=== PATIENT | female | born 1990 | race Caucasian/White ===

== ENCOUNTER 2017-12-04 10:01 | Emergency (ER) | payer MEDICAID ==
[2017-12-04 10:16] VITALS: BP 128/82; PULSE 71; RESP 18; TEMP 98.8; O2SAT 100
--- NOTE | 2017-12-04 10:30 | C.PDOC ---
History Of Present Illness WORSENING R UPPER TOOTH PAIN X 8 DAYS. WORSE AFTER BITING ON "SOMETHING HARD AND IT CRACKED THE TOOTH", NOW W INCR PAIN AND R FACIAL SWELLING. APPLYING TOPICAL RUBBING ALCOHOL TO TOOTH. NO OTHER ASSOC SX. +SMOKER EXAM MILD DIST NONTOXIC HEENT +POOR DENTITION. +CRACKED R UPPER 1 MOLAR W LOCAL TEND. MIN LOCAL GUM IRRITATION, NO ABSCESS. +R MILD LOWER FACIAL SWELL, NO ERYTHEMA REMAINDER NEG MDM ABX, PAIN RX, STOP SMOKING, DENTAL REFER Time Seen by Provider: 12/04/17 10:16 Chief Complaint (Nursing): Dental Pain History Per: Patient History/Exam Limitations: no limitations Onset/Duration Of Symptoms: Days Current Symptoms Are (Timing): Still Present Severity: Moderate Past Medical History Reviewed: Historical Data, Nursing Documentation, Vital Signs Vital Signs: Last Vital Signs Temp 98.8 F 12/04/17 10:14 Pulse 71 12/04/17 10:14 Resp 18 12/04/17 10:14 BP 128/82 12/04/17 10:14 Pulse Ox 100 12/04/17 10:14 - Medical History PMH: No Chronic Diseases Other Surgeries: Hx of surgeries Family History: States: No Known Family Hx - Social History Hx Tobacco Use: No Hx Alcohol Use: No Hx Substance Use: No - Immunization History Hx Influenza Vaccination: No Hx Pneumococcal Vaccination: No Review Of Systems Except As Marked, All Systems Reviewed And Found Negative. ENT: Positive for: Mouth Pain (right upper tooth pain) Physical Exam - Physical Exam Appears: Non-toxic, Other (mild distress) Skin: Normal Color, Warm, Dry Head: Atraumatic, Normacephalic, Swelling (+right mild lower facial swelling, no erythema) Eye(s): bilateral: Normal Inspection Teeth: No Normal Dentition (poor dentition), Other (+ cracked right upper 1 molar with local tenderness, minimal local gum irritation, no abscess) Neurological/Psych: Oriented x3, Normal Speech Medical Decision Making Medical Decision Making: ABX, PAIN RX, STOP SMOKING, DENTAL REFER Disposition Counseled Patient/Family Regarding: Diagnosis, Need For Followup, Rx Given, Smoking Cessation - Disposition Referrals: DENTAL,CLINIC [Other] Disposition: HOME/ ROUTINE Disposition Time: 10:35 Condition: IMPROVED Additional Instructions: STOP SMOKING IMMEDIATELY. SEE DENTIST BHAVYA. COMPLETE ANTIBIOTICS PRESCRIBED. Prescriptions: Acetaminophen with Codeine [Tylenol with Codeine No. 3 300 mg-30 mg] 1 tab PO Q6 PRN #12 tab PRN Reason: Pain, Moderate (4-7) Amoxicillin [Amoxil 500 mg Cap] 500 mg PO BID #14 cap Ibuprofen [Motrin] 600 mg PO Q6 #30 tab Instructions: Dental Pain (DC) Forms: [facility] (Frisian) - Clinical Impression Clinical Impression: Tooth fracture, Dentalgia - Scribe Statement The provider has reviewed the documentation as recorded by the Tahira Delgado Provider Attestation: All medical record entries made by the Desmondibneva were at my direction and personally dictated by me. I have reviewed the chart and agree that the record accurately reflects my personal performance of the history, physical exam, medical decision making, and the department course for this patient. I have also personally directed, reviewed, and agree with the discharge instructions and disposition.
[2017-12-04] MEDS ORDERED: Acetaminophen-Codeine 300/30 mg Tab PO STA (10:38)
[2017-12-04] MEDS ORDERED: Acetaminophen-Codeine 300/30 mg Tab PO ONE (10:45)
== END 2017-12-04 10:48 | disposition home or self-care (01) ==
LOC: C.ER 10:01
DX: S02.5XXA Fracture of tooth (traumatic), initial encounter for closed fracture (principal); K08.89 Other specified disorders of teeth and supporting structures

== ENCOUNTER 2018-01-17 23:18 | Emergency (ER) | payer MEDICAID, OTHER ==
[2018-01-17 23:26] VITALS: BP 113/77; PULSE 88; RESP 20; TEMP 98.6; O2SAT 98
[2018-01-18] MEDS ORDERED: Tetanus/Diphtheria Toxoids 0.5 ml Syringe IM ONE ×2 (00:13→00:19)
[2018-01-18] MEDS ORDERED: Bacitracin Ointment 30 GM TUBE TOP STA (00:13)
[2018-01-18] MEDS ORDERED: Bacitracin 500 Units/gm Oint Foilpak UD ONE (00:19)
--- NOTE | 2018-01-18 01:04 | C.PDOC ---
History Of Present Illness 27 yo female come in for evaluation of Left dorsal wrist contusion developed early today around 4 PM while at work. Pt sts, " was struck by metal fork by accident". Noted some superficial linear laceration and mild swelling over left dorsal wrist. Otherwise, pt denies weakness, sensory or vascular deficits to Left arm/hand. Ambulate to ED for evaluation, not in any apparent distress. Time Seen by Provider: 01/17/18 23:28 Chief Complaint (Nursing): Abnormal Skin Integrity History Per: Patient Past Medical History Reviewed: Historical Data, Nursing Documentation, Vital Signs Vital Signs: Last Vital Signs Temp 98.6 F 01/17/18 23:21 Pulse 88 01/17/18 23:21 Resp 20 01/17/18 23:21 BP 113/77 01/17/18 23:21 Pulse Ox 98 01/17/18 23:21 - Medical History PMH: No Chronic Diseases Family History: States: No Known Family Hx - Social History Hx Tobacco Use: Yes Hx Alcohol Use: No Hx Substance Use: Yes - Immunization History Hx Tetanus Toxoid Vaccination: No Hx Influenza Vaccination: No Hx Pneumococcal Vaccination: No Review Of Systems Except As Marked, All Systems Reviewed And Found Negative. Constitutional: Negative for: Fever, Chills Musculoskeletal: Positive for: Arm Pain Skin: Positive for: Lesions Neurological: Negative for: Weakness, Numbness Physical Exam - Physical Exam Appears: Well, Non-toxic, No Acute Distress Skin: Normal Color, Warm, Other (superificial linear laceration 2cm length over dorsal aspect left distal forearm/wrist, mild edema. No erythema, no discharge, no proximal streaking.) Extremity: Normal ROM (LUE), Tenderness (dorsal aspect left distal forearm/wrist ), Capillary Refill (less than 2sec to Left hand), No Deformity, Swelling Pulses: Left Radial: Normal Neurological/Psych: Oriented x3, Normal Speech, Normal Motor, Normal Sensation, Normal Reflexes ED Course And Treatment O2 Sat by Pulse Oximetry: 98 Pulse Ox Interpretation: Normal - Other Rad Left wrist X-Ray: Interpreted by Me, Viewed By Me Interpretation: (-) acute fx or dislocation Progress Note: On re-eval, pt is afebrile, hemodynamicaly stable. Ambulatory in ED with stable gait. Left dorsal forear/wrist: mild tenderness, edema associated with superficial linear laceration over distal forearm. No erythema, no wound discharge, no palpable deformity. FAROM, no neurovascular deficits. Imaging review (-) acute findings. tetanusgivebn. Bacitracin topically applied. Chris wrap ap plied to Left wrist. Pt advised. ref. to F/U with PMD in 2-3 days for re-eval. return if any new chnages. Disposition Counseled Patient/Family Regarding: Studies Performed, Diagnosis, Need For Followup, Rx Given - Disposition Referrals: [facility] [Outside] Disposition: HOME/ ROUTINE Disposition Time: : Condition: STABLE Additional Instructions: Apply antibiotic cream daily Clean wound with Peroxide daily Follow up with PMD in 2 days for re-evaluation. return to ED if any worsening or new changes. Prescriptions: Bacitracin OINT 1 applic TP BID #1 tube traMADol [Ultram] 50 mg PO TID #7 tab Instructions: Wound Care (DC), Wrist Sprain (DC) Forms: [facility] (Gabonese), Work Excuse - Clinical Impression Clinical Impression: Wrist contusion, Laceration
--- NOTE | 2018-01-18 09:10 | RAD ---
Date of service: 01/18/2018 PROCEDURE: Left Wrist Radiographs. HISTORY: injury COMPARISON: None. FINDINGS: BONES: Bone alignment and mineralization are normal. There is no acute displaced fracture or bone destruction. JOINTS: Normal. No dislocation. SOFT TISSUES: Normal. OTHER FINDINGS: None. IMPRESSION: No acute fracture or dislocation.
== END 2018-01-18 01:17 | disposition home or self-care (01) ==
LOC: C.ER 23:18
DX: S60.212A Contusion of left wrist, initial encounter (principal); S61.512A Laceration without foreign body of left wrist, initial encounter; X58.XXXA Exposure to other specified factors, initial encounter; Y99.0 Civilian activity done for income or pay; Z23 Encounter for immunization

== ENCOUNTER 2018-04-22 17:45 | Observation (INO) | payer MEDICAID ==
[2018-04-22] MEDS ORDERED: Sodium Chloride 0.9% 1,000 ML IV ONE ×3 (18:11→21:24)
[2018-04-22 18:23] LABS: BASO # 0.1 K/uL (0.0-0.2); MONO # 0.6 K/uL (0.0-0.8)
[2018-04-22 18:30] LABS: BASO % 0.3 % (0.0-2.0); EOS # 0.1 K/uL (0.0-0.7); EOS % 0.4 % (0.0-4.0); HEMOGLOBIN 13.3 g/dL (11.0-16.0); LYMPH # 1.8 K/uL (1.0-4.3); LYMPH % 5.5 % (20.0-40.0); MEAN CORPUSCULAR HEMOGLOBIN 32.5 pg (27.0-31.0); MEAN CORPUSCULAR HGB CONC 33.2 g/dL (33.0-37.0); MEAN PLATELET VOLUME 7.8 fL (7.2-11.7); MONO % 1.9 % (0.0-10.0); NEUT # 29.6 K/uL (1.8-7.0); NEUT % 91.9 % (50.0-75.0); PLATELET COUNT 294 K/uL (130-400); RBC 4.09 Mil/uL (3.80-5.20); RED CELL DISTRIBUTION WIDTH 13.1 % (11.5-14.5)
[2018-04-22 18:33] LABS: WHITE BLOOD COUNT 32.3 K/uL (4.8-10.8)
[2018-04-22 18:42] LABS: ALB/GLOB RATIO 1.3 (1.0-2.1); ALBUMIN 4.4 g/dL (3.5-5.0); ALT/SGPT 31 U/L (9-52); AST/SGOT 63 U/L (14-36); BLOOD UREA NITROGEN 16 mg/dL (7-17); CALCIUM 8.4 mg/dl (8.6-10.4); GFR NON-AFRICAN AMERICAN > 60
[2018-04-22 18:56] LABS: ACETAMINOPHEN < 10.0 ug/mL (10.0-30.0); SALICYLATE < 1.0 mg/dL 1
[2018-04-22 19:04] LABS: SQUAMOUS EPITHIAL 4 /hpf (0-5); URINE BACTERIA OCC (<OCC); URINE BILIRUBIN NEGATIVE (NEGATIVE); URINE BLOOD 1+ (NEGATIVE); URINE CLARITY Hazy (Clear); URINE COLOR Yellow (YELLOW); URINE GLUCOSE (UA) 3+ mg/dL (Normal); URINE LEUKOCYTE ESTERASE 3+ Leu/uL (Negative); URINE PROTEIN NEGATIVE (NEGATIVE); URINE UROBILINOGEN NORMAL mg/dL (0.2-1.0)
[2018-04-22 19:05] LABS: HCG,QUALITATIVE URINE NEGATIVE (NEGATIVE)
[2018-04-22 19:09] LABS: BARBITURATES, UR NEGATIVE (NEGATIVE); BENZODIAZEPINES, UR NEGATIVE (NEGATIVE); OPIATES, UR NEGATIVE (NEGATIVE); PHENCYCLIDINE, UR NEGATIVE (NEGATIVE)
--- NOTE | 2018-04-22 19:14 | C.PDOC ---
History Of Present Illness 27 year old female is brought to the ED by ambulance for evaluation. As per female senior principal who is at bedside, patient was noted to be exhibiting abnormal behavior today. As per senior principal, patient worked an overnight shift and began exhibiting abnormal behavior, such as biting her lip, Tmh Teacher denies seizure activity. Upon further questioning, patient states that she bought marijuana from the [employer] and it may have been laced with something. Patient denies headache at this time. Time Seen by Provider: 04/22/18 18:03 Chief Complaint (Nursing): Seizure History Per: Patient, Other (female senior principal ) History/Exam Limitations: no limitations Recent Seizure Activity Began: Hours Ago: Additional History Per: Patient Past Medical History Reviewed: Historical Data, Nursing Documentation, Vital Signs Vital Signs: Last Vital Signs Temp 97.8 F 04/22/18 18:06 Pulse 100 H 04/22/18 18:06 Resp 16 04/22/18 18:06 BP 115/74 04/22/18 18:06 Pulse Ox 97 04/22/18 18:06 - Medical History PMH: No Chronic Diseases Surgical History: No Surg Hx Family History: States: Unknown Family Hx - Social History Hx Tobacco Use: Yes Hx Alcohol Use: No Hx Substance Use: Yes - Immunization History Hx Tetanus Toxoid Vaccination: No Hx Influenza Vaccination: No Hx Pneumococcal Vaccination: No Review Of Systems Review Of Systems: ROS cannot be obtained secondary to pt's inabilty to answer questions. Physical Exam - Physical Exam Appears: Non-toxic, No Acute Distress, Other (somnolent, difficult to redirect ) Skin: Normal Color, Warm, Dry Head: Atraumatic, Normacephalic Eye(s): bilateral: Other (pinpoint pupils. no photophobia ) Oral Mucosa: Moist Neck: Supple Chest: Symmetrical, No Deformity, No Tenderness Cardiovascular: Rhythm Regular, No Murmur Respiratory: Normal Breath Sounds, No Rales, No Rhonchi, No Wheezing Extremity: Normal ROM, Capillary Refill (less than 2 seconds ) Neurological/Psych: Other (unremarkable peripheral neurological exam ) ED Course And Treatment - Laboratory Results Result Diagrams: 04/22/18 20:48 04/22/18 21:28 Lab Interpretation: Abnormal (leukocytosis down from 32K to 24K, ? demargination from ? seizure vs cocaine abuse, UDS + cocaine/THC, UA neg.) Urine POC: Negative ECG: Interpreted By Me ECG Rhythm: Sinus Rhythm O2 Sat by Pulse Oximetry: 97 (on RA ) Pulse Ox Interpretation: Normal - Radiology CXR: Interpreted by Me CXR Interpretation: Yes: No Acute Disease - CT Scan/US head CT Other Rad Studies (CT/US): Interpreted By Me, Radiology Report Reviewed (neg) Progress Note: transient hypoglycemia glu 37-57 rechecked, pt A&Ox3, had received insulin 4 IV for glu 280. 2L NS luekocytosis improrved from 32K-->24K no infectuous source, prob demargination. lower susp of seizure provoked by cocaine as cpk low/norm Reevaluation Time: 22:26 Reassessment Condition: Improved (neurologically much improved,) - Physician Consult Information Outcome Of Conversation: 0000: d/w Dr. Jesus- Medicine Lift Supervisor- ok to admit Medical Decision Making Medical Decision Making: ? seizure activity leukocytosis trending down, no source cocaine/cannabis abuse ? new DM glu 280 transient HYPOglycemia in ED Disposition Doctor Will See Patient In The: Hospital Counseled Patient/Family Regarding: Studies Performed, Diagnosis - Disposition Disposition: HOSPITALIZED Disposition Time: 22:30 Condition: GOOD - Clinical Impression Clinical Impression: Mental status alteration, Cocaine abuse, Cannabis abuse, Hyperglycemia - Scribe Statement The provider has reviewed the documentation as recorded by the Scribe (Anastasia Ames) Provider Attestation: All medical record entries made by the Scribe were at my direction and personally dictated by me. I have reviewed the chart and agree that the record accurately reflects my personal performance of the history, physical exam, medical decision making, and the department course for this patient. I have also personally directed, reviewed, and agree with the discharge instructions and disposition.
--- NOTE | 2018-04-22 19:17 | C.PDOC ---
Time Seen by Provider: 04/22/18 18:03 Chief Complaint (Nursing): Seizure Past Medical History Vital Signs: Last Vital Signs Temp 97.8 F 04/22/18 18:06 Pulse 100 H 04/22/18 18:06 Resp 16 04/22/18 18:06 BP 115/74 04/22/18 18:06 Pulse Ox 97 04/22/18 18:06 - Social History Hx Tobacco Use: Yes Hx Alcohol Use: No Hx Substance Use: Yes - Immunization History Hx Tetanus Toxoid Vaccination: No Hx Influenza Vaccination: No Hx Pneumococcal Vaccination: No ED Course And Treatment - Laboratory Results Result Diagrams: 04/22/18 18:19 04/22/18 18:19 O2 Sat by Pulse Oximetry: 97 Disposition - Disposition
[2018-04-22 19:25] LABS: VENOUS BLOOD GAS BASE EXCESS -4.5 mmol/L (0.0-2.0); VENOUS BLOOD GAS PCO2 61 mmHg (40-60); VENOUS BLOOD GAS PO2 44 mm/Hg (30-55); VENOUS BLOOD PH 7.21 (7.32-7.43)
[2018-04-22 19:32] LABS: BANDS 11 % (0-2); LYMPHOCYTE 3 % (20-40); MYELOCYTE 1 % (0-0); NEUTROPHIL 85 % (50-75); PLATELET ESTIMATE NORMAL (NORMAL); TOTAL CELLS COUNTED 100
[2018-04-22] MEDS ORDERED: (Novolin R) Insulin Human Regular 100 units/ml vial IVP STA (19:32)
[2018-04-22] MEDS ORDERED: (Novolin R) Insulin Human Regular 100 units/ml vial ONE (19:44)
[2018-04-22 20:55] LABS: HEMOGLOBIN 11.7 g/dL (11.0-16.0); MEAN CELL VOLUME 97.4 fL (81.0-99.0); MEAN CORPUSCULAR HEMOGLOBIN 32.6 pg (27.0-31.0); MEAN CORPUSCULAR HGB CONC 33.5 g/dL (33.0-37.0); MEAN PLATELET VOLUME 7.4 fL (7.2-11.7); RBC 3.59 Mil/uL (3.80-5.20); RED CELL DISTRIBUTION WIDTH 12.9 % (11.5-14.5)
[2018-04-22 21:21] LABS: VENOUS BLOOD GAS BASE EXCESS -9.7 mmol/L (0.0-2.0); VENOUS BLOOD GAS PCO2 37 mmHg (40-60); VENOUS BLOOD GAS PO2 21 mm/Hg (30-55); VENOUS BLOOD PH 7.26 (7.32-7.43)
[2018-04-22 21:21] LABS: ALB/GLOB RATIO 1.3 (1.0-2.1); ALBUMIN 3.6 g/dL (3.5-5.0); ALT/SGPT 30 U/L (9-52); AST/SGOT 42 U/L (14-36); BLOOD UREA NITROGEN 14 mg/dL (7-17); CALCIUM 7.1 mg/dl (8.6-10.4); GFR NON-AFRICAN AMERICAN > 60
[2018-04-22] MEDS ORDERED: Dextrose 50% SYRINGE Inj (50 ml) ONE (21:25)
[2018-04-22] MEDS ORDERED: Sodium Chloride 0.9% 1,000 ML ONE (21:32)
[2018-04-23] MEDS ORDERED: Dextrose 5%/0.9% NS 1,000 ML IV SCH (08:00)
--- NOTE | 2018-04-23 08:23 | CT ---
Date of service: 04/22/2018 PROCEDURE: CT HEAD WITHOUT CONTRAST. HISTORY: Headache. Change in mental status. Leukocytosis. COMPARISON: None available. TECHNIQUE: Axial computed tomography images were obtained through the head/brain without intravenous contrast. Radiation dose: Total exam DLP = 1036.44 mGy-cm. This CT exam was performed using one or more of the following dose reduction techniques: Automated exposure control, adjustment of the mA and/or kV according to patient size, and/or use of iterative reconstruction technique. FINDINGS: HEMORRHAGE: No intracranial hemorrhage. BRAIN: No mass effect or edema. No atrophy or chronic microvascular ischemic changes. VENTRICLES: Unremarkable. No hydrocephalus. CALVARIUM: Unremarkable. PARANASAL SINUSES: Mucosal thickening the ethmoid air cells. MASTOID AIR CELLS: Unremarkable as visualized. No inflammatory changes. OTHER FINDINGS: None. IMPRESSION: No acute intracranial abnormality. Sinus mucosal disease. If symptoms persists, consider correlation with MRI. A preliminary report was generated at 8:33 p.m. on 04/22/[address] Vasu Maciel from [facility].
--- NOTE | 2018-04-23 08:35 | RAD ---
Date of service: 04/22/2018 HISTORY: leukocytosis COMPARISON: No prior. FINDINGS: LUNGS: Low-density vague asymmetrical mild increased density projects over the left inferior hemithorax near costophrenic angle. A developing infiltrate and/or other pleural parenchymal pathology including small left pleural effusion are considerations. No dense air bronchograms noted. PLEURA: Possible small left pleural effusion present., no pneumothorax apparent. CARDIOVASCULAR: No aortic atherosclerotic calcification present. Normal cardiac size. No pulmonary vascular congestion. OSSEOUS STRUCTURES: No significant abnormalities. VISUALIZED UPPER ABDOMEN: Normal. OTHER FINDINGS: None. IMPRESSION: Low-density vague asymmetrical mild increased density projects over the left inferior hemithorax near costophrenic angle. A developing infiltrate and/or other pleural parenchymal pathology including small left pleural effusion are considerations. No dense air bronchograms noted. Comments: Study marked for PA review .
--- NOTE | 2018-04-23 09:26 | PCM.PSYCH ---
Initial Psychiatric Evaluation - Initial Psychiatric Evaluation Type of Admission: Voluntary Legal Status: Capacity Current Medications: Active Medications Generic Name Dose Route Start Last Admin Trade Name Freq PRN Reason Stop Dose Admin Dextrose/Sodium Chloride 1,000 mls @ 100 mls/hr 04/23/18 08:00 Dextrose 5%/0.9% Ns 1000 Ml IV .Q10H REILLY Ondansetron HCl 4 mg 04/23/18 07:52 Zofran Inj IVP Q6 PRN N/V Past Psychiatric History - Past Psychiatric History Pertinent Medical Hx (Current Medical&Sleep Prob, Allergies): Allergies Allergy/AdvReac Type Severity Reaction Status Date / Time feathers Allergy RASH Uncoded 01/17/18 23:26 Bacitracin OINT 1 applic TP BID #1 tube 01/18/18 traMADol [Ultram] 50 mg PO TID #7 tab 01/18/18
[2018-04-23 11:14] LABS: HEMOGLOBIN 11.6 g/dL (11.0-16.0); MEAN CELL VOLUME 97.5 fL (81.0-99.0); MEAN CORPUSCULAR HEMOGLOBIN 32.8 pg (27.0-31.0); MEAN CORPUSCULAR HGB CONC 33.7 g/dL (33.0-37.0); MEAN PLATELET VOLUME 7.9 fL (7.2-11.7); RBC 3.53 Mil/uL (3.80-5.20)
[2018-04-23 11:39] LABS: BLOOD UREA NITROGEN 8 mg/dL (7-17)
[2018-04-23 11:48] LABS: CALCIUM 7.4 mg/dl (8.6-10.4); CK-MB 5.77 ng/mL (0.0-3.38); GFR NON-AFRICAN AMERICAN > 60
[2018-04-23] MEDS: Azithromycin 500 MG in Sodium Chloride 0.9% 250 ML IVPB SCH (14:00)
--- NOTE | 2018-04-23 14:01 | CP.PCM.PN ---
Subjective - Date & Time of Evaluation Date of Evaluation: 04/23/18 Time of Evaluation: 09:30 - Subjective Subjective: Medicine progress note (Dr. Silva's service) Patient was seen and examined at bedside. Patient complains of nausea and "not feeling well'. Upon questioning, patient states that she does not recall what happened to her. Currently, patient admits to mild chest discomfort, nausea and vomiting but denies shortness of breath, palpitations, dizziness,diaphoresis, diarrhea or abdominal pain. HPI: Patient is a 27 year old with unknown of past medical history, who presents to the ED via ambulance due to abnormal behaviors witnessed by her partner. As per patient she does not recall the incident and the only she can recall is the arrival of EMS to her home. As per patient, she went out for drinks after work and does not recall what happened when got home. As per ED documentation and partner, patient was noted to have some erratic/abnormal behavior at home that was very concerning, there patient's partner called the EMS. Upon further questioning, patient believes her drinks was laced and patient denies any current use of cocaine or heroine or any other illicit drugs. Patient states that she had used other illicit drugs in the past but not for years. PMD: None PMHx: Denies PSHx: Denies Medications: Denies FHx: Unknown Allergies: Feathers Social Hx: Lives with partner. Work an overnight shift job. Admits to frequent use of marijuana and 3 cigarettes but denies current illicit drug use Objective - Vital Signs/Intake and Output Vital Signs (last 24 hours): Temp Pulse Resp BP Pulse Ox 98.8 F 90 20 97/56 L 98 04/23/18 08:33 04/23/18 08:33 04/23/18 08:33 04/23/18 08:33 04/23/18 12:51 - Medications Medications: Current Medications Dextrose/Sodium Chloride (Dextrose 5%/0.9% Ns 1000 Ml) 1,000 mls @ 100 mls/hr IV .Q10H REILLY Last Admin: 04/23/18 08:30 Dose: 100 mls/hr Azithromycin 500 mg/ Sodium (Chloride) 250 mls @ 250 mls/hr IVPB DAILY@1200 REILLY; Protocol Ceftriaxone Sodium 1 gm/ (Sodium Chloride) 100 mls @ 100 mls/hr IVPB Q12H REILLY; Protocol Ondansetron HCl (Zofran Inj) 4 mg IVP Q6 PRN PRN Reason: N/V - Labs Labs: 04/23/18 11:05 04/23/18 11:05 - Constitutional Appears: No Acute Distress - Head Exam Head Exam: ATRAUMATIC - Eye Exam Eye Exam: EOMI - ENT Exam ENT Exam: Mucous Membranes Dry - Respiratory Exam Respiratory Exam: Clear to Ausculation Bilateral, NORMAL BREATHING PATTERN. absent: Decreased Breath Sounds, Prolonged Expiratory Phase, Rhonchi, Wheezes, Respiratory Distress - Cardiovascular Exam Cardiovascular Exam: Tachycardia, REGULAR RHYTHM, +S1, +S2 - GI/Abdominal Exam GI & Abdominal Exam: Soft, Normal Bowel Sounds. absent: Distended, Firm, Guarding, Rigid, Tenderness - Extremities Exam Extremities Exam: Normal Inspection. absent: Calf Tenderness - Back Exam Back Exam: absent: CVA tenderness (L), CVA tenderness (R) - Neurological Exam Neurological Exam: Alert, Awake, Oriented x3 - Psychiatric Exam Psychiatric exam: Normal Affect - Skin Skin Exam: Normal Color Assessment and Plan (1) Mental status alteration Assessment & Plan: Possible witnessed seizure episode secondary to substance abuse Consultation: Neurology, Dr. Walls--->Help appreciated * Recommendation as per recommendation Imaging: Head CT: No acute intracranial abnormality. Sinus mucosal disease. F/U Brain MRI Management: Seizure precautions Status: Acute (2) Nausea Assessment & Plan: Zofran 4mg IV Q6H PRN Status: Acute (3) Sepsis Assessment & Plan: On admission: - WBC: 32.4, HR:100, Bands 11 Chest X-ray: Low-density vague asymmetrical mild increased density projects over the left inferior hemithorax near costophrenic angle. A developing infiltrate and/or other pleural parenchymal pathology including small left pleural effusion are considerations. No dense air bronchograms noted. UA: LE (3+), WBC (29); F/u UC and BC F/u procalcitonin WBC down trending Empiric Abx: - Rocephin 1gm daily - Azithromycin 500mg IV daily -Florastor 250mg PO BID - D5WNS @100cc/hr due to hypoglycemia Status: Acute (4) Substance abuse Assessment & Plan: UDS: +Cocaine Consultation: - Psychiatry, Dr. Paige---> Help appreciated * Management as per recommendation Status: Acute (5) Chest discomfort Assessment & Plan: Possibly secondary to cocaine use MARILEE: Negative F/u EKG Status: Acute (6) Hypokalemia Assessment & Plan: Secondary to vomiting KCL soln PO once Monitor with am cmp Status: Acute (7) Hypoglycemia Assessment & Plan: Finger stick blood glucose ACBD Currently on D5WNS@100cc/hr Status: Acute (8) Prophylactic measure Assessment & Plan: GI: Not indicated DVT: SCDs All plans and management discussed with Dr. Silva Status: Acute
[2018-04-23] MEDS ORDERED: Potassium Chloride 20 mEq/15 ml LIQ UD PO ONE (14:20)
--- NOTE | 2018-04-23 15:42 | MRI ---
Date of service: 04/23/2018 PROCEDURE: MRI BRAIN WITHOUT CONTRAST HISTORY: Altered Mental Status COMPARISON: None available. TECHNIQUE: Multiplanar, multisequence MR images of the brain were obtained without intravenous contrast enhancement. FINDINGS: HEMORRHAGE: None DWI: No evidence of an acute or early subacute infarction. BRAIN PARENCHYMA: No mass effect or edema. No atrophy or chronic microvascular ischemic changes. VENTRICLES: Unremarkable. No hydrocephalus. CRANIUM: Unremarkable. ORBITS: Grossly unremarkable. PARANASAL SINUSES/MASTOIDS: Bilateral maxillary sinus retention cyst/polyps as well as mild left mastoid air cell opacification. VASCULAR SYSTEM: Skull base flow voids intact. OTHER FINDINGS: None. IMPRESSION: Unremarkable non contrast enhanced MRI of the brain.Bilateral maxillary sinus retention cyst/polyps as well as mild left mastoid air cell opacification.
--- NOTE | 2018-04-23 17:34 | CP.PCM.CON ---
History of Present Illness - History of Present Illness History of Present Illness: Neurology Consultation Note: Ms. Mejia is a 27-year-old woman, referred to me by Dr. Silva, with a history of multi-substance abuse, who presented to the ED after her friend found her having difficulty with respirations and lips were blue, she was biting her lips and was not responsive. EMS was called and noted the patient to be unresponsive and in respiratory distress. Later, when the patient was awake, alert, oriented and conversant, she stated that she had obtained some marijuana from an unknown source and she believes it was "laced". Urine toxicology was positive for cocaine and THC. She had an elevated WBC, but was afebrile. CT scan of the head was normal. MRI of the brain was normal. The patient continues to have nausea/vomiting and some trouble with respirations, but no headache and no focal neurological deficits are noted. Review of Systems - Constitutional Constitutional: As Per HPI - EENT Eyes: absent: As Per HPI, Blind Spots, Blurred Vision, Change in Vision, Decreased Night Vision, Diplopia, Discharge, Dry Eye, Exophthalmos, Floaters, Irritation, Itchy Eyes, Loss of Peripheral Vision, Pain, Photophobia, Requires Corrective Lenses, Sees Flashes, Spots in Vision, Tunnel Vision, Other Visual Disturbances, Loss of Vision, Other Ears: absent: As Per HPI, Decreased Hearing, Ear Discharge, Ear Pain, Tinnitus, Abnormal Hearing, Disequilibrium, Dizziness, Other Nose/Mouth/Throat: absent: As Per HPI, Epistaxis, Nasal Congestion, Nasal Disc harge, Nasal Obstruction, Nasal Trauma, Nose Pain, Post Nasal Drip, Sinus Pain, Sinus Pressure, Bleeding Gums, Change in Voice, Dental Pain, Dry Mouth, Dysphagia, Halitosis, Hoarsness, Lip Swelling, Mouth Lesions, Mouth Pain, Odynophagia, Sore Throat, Throat Swelling, Tongue Swelling, Facial Pain, Neck Pain, Neck Mass, Other - Breasts Breasts: absent: As Per HPI, Change in Shape, Mass, Pain, Nipple Discharge, Nipple Inversion, Skin Changes, Swelling, Other - Cardiovascular Cardiovascular: absent: As Per HPI, Acrocyanosis, Chest Pain, Chest Pain at Rest, Chest Pain with Activity, Claudication, Diaphoresis, Dyspnea, Dyspnea on Exertion, Edema, Irregular Heart Rhythm, Pain Radiating to Arm/Neck/Jaw, Leg Edema, Leg Ulcers, Lightheadedness, Orthopnea, Palpitations, Paroxysmal Nocturnal Dyspnea, Pedal Edema, Radiating Pain, Rapid Heart Rate, Slow Heart Rate, Syncope, Other - Respiratory Respiratory: As Per HPI - Gastrointestinal Gastrointestinal: absent: As Per HPI, Abdominal Pain, Belching, Bloating, Change in Bowel Habits, Change in Stool Character, Coffee Ground Emesis, Constipation, Cramping, Diarrhea, Dyspepsia, Dysphagia, Early Satiety, Excessive Flatus, Fecal Incontinence, Heartburn, Hematemesis, Hematochezia, Loose Stools, Melena, Nausea, Odynophagia, Temesmus, Vomiting, Other - Genitourinary Genitourinary: Difficulty Urinating, Dysuria, Urinary Frequency - Musculoskeletal Musculoskeletal: absent: As Per HPI, Abnormal Gait, Arthralgias, Atrophy, Back Pain, Deformity, Joint Swelling, Limited Range of Motion, Loss of Height, Muscle Cramps, Muscle Weakness, Myalgias, Neck Pain, Numbness, Radiating Pain into Limb, Stiffness, Tingling, Other - Integumentary Integumentary: absent: As Per HPI, Acne, Alopecia, Bleeding Lesions, Change in Hair, Change in Nails, Change in Pigmentation, Changing Lesions, Dry Skin, Erythema, Furuncle, Hirsutism, Lesions, New Lesions, Non-Healing Lesions, Photosensitivity, Pruritus, Rash, Skin Pain, Skin Ulcer, Sores, Striae, Swelling, Unusual Bruising, Wounds, Jaundice, Other - Neurological Neurological: As Per HPI - Psychiatric Psychiatric: As Per HPI - Endocrine Endocrine: absent: As Per HPI, Change in Body Appearance, Change in Libido, Cold Intolorance, Deepening of Voice, Excessive Sweating, Fatigue, Flushing, Heat Intolorance, Increase in Ring/Shoe/Hat Size, Palpitations, Polydipsia, Polyphagia, Polyuria, Other - Hematologic/Lymphatic Hematologic: As Per HPI Past Patient History - Infectious Disease Hx of Infectious Diseases: None - Past Social History Smoking Status: Light Smoker < 10 Cigarettes Daily - PSYCHIATRIC Hx Substance Use: Yes - SURGICAL HISTORY Hx Surgeries: Yes Other/Comment: CYST REMOVED / TAILBONE - ANESTHESIA Hx Anesthesia: Yes Hx Anesthesia Reactions: No Hx Malignant Hyperthermia: No Meds Allergies/Adverse Reactions: Allergies Allergy/AdvReac Type Severity Reaction Status Date / Time feathers Allergy RASH Uncoded 01/17/18 23:26 - Medications Medications: Current Medications Dextrose/Sodium Chloride (Dextrose 5%/0.9% Ns 1000 Ml) 1,000 mls @ 100 mls/hr IV .Q10H [facility] Last Admin: 04/23/18 08:30 Dose: 100 mls/hr Azithromycin 500 mg/ Sodium (Chloride) 250 mls @ 250 mls/hr IVPB DAILY@1200 [facility]; Protocol Last Admin: 04/23/18 14:00 Dose: 250 mls/hr Ceftriaxone Sodium 1 gm/ (Sodium Chloride) 100 mls @ 100 mls/hr IVPB Q12H [facility]; Protocol Last Admin: 04/23/18 13:00 Dose: 100 mls/hr Ondansetron HCl (Zofran Inj) 4 mg IVP Q6 PRN PRN Reason: N/V Last Admin: 04/23/18 14:36 Dose: 4 mg Saccharomyces Boulardii (Florastor) 250 mg PO BID [facility] Physical Exam - Constitutional Appears: Toxic - Head Exam Head Exam: ATRAUMATIC, NORMAL INSPECTION, NORMOCEPHALIC - Eye Exam Eye Exam: EOMI, Normal appearance, PERRL - ENT Exam ENT Exam: Mucous Membranes Moist, Normal Exam - Neck Exam Neck exam: Positive for: Normal Inspection - Respiratory Exam Respiratory Exam: Prolonged Expiratory Phase, Wheezes, Stridor - Cardiovascular Exam Cardiovascular Exam: REGULAR RHYTHM, +S1, +S2 - GI/Abdominal Exam GI & Abdominal Exam: Hyperactive Bowel Sounds, Soft, Tenderness - Rectal Exam Rectal Exam: Deferred - Extremities Exam Extremities exam: Positive for: normal inspection - Back Exam Back exam: NORMAL INSPECTION - Neurological Exam Neurological exam: Alert, CN II-XII Intact, Normal Gait, Oriented x3, Reflexes Normal - Psychiatric Exam Psychiatric exam: Normal Affect, Normal Mood - Skin Skin Exam: Dry, Intact, Normal Color, Warm Results - Vital Signs Recent Vital Signs: Last Vital Signs Temp 98.2 F 04/23/18 15:21 Pulse 80 04/23/18 15:21 Resp 18 04/23/18 15:21 BP 104/70 04/23/18 15:21 Pulse Ox 95 04/23/18 15:21 - Labs Result Diagrams: 04/23/18 11:05 04/23/18 11:05 Labs: Laboratory Results - last 24 hr 04/22/18 04/22/18 04/22/18 18:19 18:19 18:29 WBC 32.3 H RBC 4.09 Hgb 13.3 Hct 40.1 MCV 98.0 MCH 32.5 H MCHC 33.2 RDW 13.1 Plt Count 294 MPV 7.8 Neut % (Auto) 91.9 H Lymph % (Auto) 5.5 L [place] % (Auto) 1.9 Eos % (Auto) 0.4 Baso % (Auto) 0.3 Neut # (Auto) 29.6 H Lymph # (Auto) 1.8 [place] # (Auto) 0.6 Eos # (Auto) 0.1 Baso # (Auto) 0.1 Neutrophils % (Manual) 85 H Band Neutrophils % 11 H* Lymphocytes % (Manual) 3 L Monocytes % (Manual) TEST NOT PERFORMED Myelocytes % 1 H Platelet Estimate Normal pO2 VBG pH VBG pCO2 VBG HCO3 VBG Total CO2 VBG O2 Sat (Calc) VBG Base Excess VBG Potassium Glucose Lactate Crit Value Called To Crit Value Called By Crit Value Read Back Blood Gas Notified Time Sodium 137 Potassium 4.5 Chloride 100 Carbon Dioxide 20 L Anion Gap 22 H BUN 16 Creatinine 1.0 Est GFR ( Amer) > 60 Est GFR (Non-Af Amer) > 60 POC Glucose (mg/dL) Random Glucose 280 H Hemoglobin A1c Calcium 8.4 L Phosphorus 6.3 H Magnesium 2.2 Total Bilirubin 0.3 AST 63 H ALT 31 Alkaline Phosphatase 76 Total Creatine Kinase CK-MB (Mass) Troponin I Total Protein 7.8 Albumin 4.4 Globulin 3.3 Albumin/Globulin Ratio 1.3 Venous Blood Potassium Urine Color Urine Clarity Urine pH Ur Specific [place] Urine Protein Urine Glucose (UA) Urine Ketones Urine Blood Urine Nitrate Urine Bilirubin Urine Urobilinogen Ur Leukocyte Esterase Urine WBC (Auto) Urine RBC (Auto) Ur Squamous Epith Cells Urine Bacteria Urine HCG, Qual Salicylates < 1.0 Urine Opiates Screen Urine Methadone Screen Acetaminophen < 10.0 L Ur Barbiturates Screen Ur Phencyclidine Scrn Ur Amphetamines Screen U Benzodiazepines Scrn U Oth Cocaine Metabols U Cannabinoids Screen Alcohol, Quantitative < 10 04/22/18 04/22/18 04/22/18 18:47 18:47 19:10 WBC RBC Hgb Hct MCV MCH MCHC RDW Plt Count MPV Neut % (Auto) Lymph % (Auto) [place] % (Auto) Eos % (Auto) Baso % (Auto) Neut # (Auto) Lymph # (Auto) [place] # (Auto) Eos # (Auto) Baso # (Auto) Neutrophils % (Manual) Band Neutrophils % Lymphocytes % (Manual) Monocytes % (Manual) Myelocytes % Platelet Estimate pO2 44 VBG pH 7.21 L VBG pCO2 61 H VBG HCO3 20.6 VBG Total CO2 26.3 VBG O2 Sat (Calc) 77.6 H VBG Base Excess -4.5 L VBG Potassium 3.9 Glucose 101 Lactate 2.7 H Crit Value Called To Crit Value Called By Crit Value Read Back Blood Gas Notified Time Sodium 142.0 Potassium Chloride 107.0 Carbon Dioxide Anion Gap BUN Creatinine Est GFR ( Amer) Est GFR (Non-Af Amer) POC Glucose (mg/dL) Random Glucose Hemoglobin A1c Calcium Phosphorus Magnesium Total Bilirubin AST ALT Alkaline Phosphatase Total Creatine Kinase CK-MB (Mass) Troponin I Total Protein Albumin Globulin Albumin/Globulin Ratio Venous Blood Potassium 3.9 Urine Color Yellow Urine Clarity Hazy Urine pH 5.0 Ur Specific [place] 1.013 Urine Protein Negative Urine Glucose (UA) 3+ H Urine Ketones Negative Urine Blood 1+ H Urine Nitrate Negative Urine Bilirubin Negative Urine Urobilinogen Normal Ur Leukocyte Esterase 3+ H Urine WBC (Auto) 29 H Urine RBC (Auto) 25 H Ur Squamous Epith Cells 4 Urine Bacteria Occ H Urine HCG, Qual Negative Salicylates Urine Opiates Screen Negative Urine Methadone Screen Negative Acetaminophen Ur Barbiturates Screen Negative Ur Phencyclidine Scrn Negative Ur Amphetamines Screen Negative U Benzodiazepines Scrn Negative U Oth Cocaine Metabols Positive H U Cannabinoids Screen Positive H Alcohol, Quantitative 04/22/18 04/22/18 04/22/18 19:46 20:11 20:48 WBC 24.0 H RBC 3.59 L Hgb 11.7 Hct 35.0 MCV 97.4 MCH 32.6 H MCHC 33.5 RDW 12.9 Plt Count 258 MPV 7.4 Neut % (Auto) Lymph % (Auto) [place] % (Auto) Eos % (Auto) Baso % (Auto) Neut # (Auto) Lymph # (Auto) [place] # (Auto) Eos # (Auto) Baso # (Auto) Neutrophils % (Manual) Band Neutrophils % Lymphocytes % (Manual) Monocytes % (Manual) Myelocytes % Platelet Estimate pO2 21 L VBG pH 7.26 L VBG pCO2 37 L VBG HCO3 15.4 VBG Total CO2 17.7 L VBG O2 Sat (Calc) 32.3 L VBG Base Excess -9.7 L VBG Potassium 4.9 Glucose Lactate 1.5 Crit Value Called To Er nurse Crit Value Called By Stephanie rt Crit Value Read Back Y Blood Gas Notified Time 2116 Sodium 132.0 Potassium Chloride 95.0 L Carbon Dioxide Anion Gap BUN Creatinine Est GFR ( Amer) Est GFR (Non-Af Amer) POC Glucose (mg/dL) Random Glucose Hemoglobin A1c Calcium Phosphorus Magnesium Total Bilirubin AST ALT Alkaline Phosphatase Total Creatine Kinase 81 CK-MB (Mass) Troponin I Total Protein Albumin Globulin Albumin/Globulin Ratio Venous Blood Potassium 4.9 Urine Color Urine Clarity Urine pH Ur Specific [place] Urine Protein Urine Glucose (UA) Urine Ketones Urine Blood Urine Nitrate Urine Bilirubin Urine Urobilinogen Ur Leukocyte Esterase Urine WBC (Auto) Urine RBC (Auto) Ur Squamous Epith Cells Urine Bacteria Urine HCG, Qual Salicylates Urine Opiates Screen Urine Methadone Screen Acetaminophen Ur Barbiturates Screen Ur Phencyclidine Scrn Ur Amphetamines Screen U Benzodiazepines Scrn U Oth Cocaine Metabols U Cannabinoids Screen Alcohol, Quantitative 04/22/18 04/22/18 04/22/18 20:48 21:24 21:28 WBC RBC Hgb Hct MCV MCH MCHC RDW Plt Count MPV Neut % (Auto) Lymph % (Auto) [place] % (Auto) Eos % (Auto) Baso % (Auto) Neut # (Auto) Lymph # (Auto) [place] # (Auto) Eos # (Auto) Baso # (Auto) Neutrophils % (Manual) Band Neutrophils % Lymphocytes % (Manual) Monocytes % (Manual) Myelocytes % Platelet Estimate pO2 VBG pH VBG pCO2 VBG HCO3 VBG Total CO2 VBG O2 Sat (Calc) VBG Base Excess VBG Potassium Glucose Lactate Crit Value Called To Crit Value Called By Crit Value Read Back Blood Gas Notified Time Sodium 140 Potassium 3.3 L Chloride 108 H Carbon Dioxide 23 Anion Gap 12 BUN 14 Creatinine 0.8 Est GFR ( Amer) > 60 Est GFR (Non-Af Amer) > 60 POC Glucose (mg/dL) 53 L Random Glucose 37 L* D 57 L Hemoglobin A1c Calcium 7.1 L Phosphorus Magnesium Total Bilirubin 0.1 L AST 42 H D ALT 30 Alkaline Phosphatase 55 Total Creatine Kinase CK-MB (Mass) Troponin I Total Protein 6.4 Albumin 3.6 Globulin 2.8 Albumin/Globulin Ratio 1.3 Venous Blood Potassium Urine Color Urine Clarity Urine pH Ur Specific [place] Urine Protein Urine Glucose (UA) Urine Ketones Urine Blood Urine Nitrate Urine Bilirubin Urine Urobilinogen Ur Leukocyte Esterase Urine WBC (Auto) Urine RBC (Auto) Ur Squamous Epith Cells Urine Bacteria Urine HCG, Qual Salicylates Urine Opiates Screen Urine Methadone Screen Acetaminophen Ur Barbiturates Screen Ur Phencyclidine Scrn Ur Amphetamines Screen U Benzodiazepines Scrn U Oth Cocaine Metabols U Cannabinoids Screen Alcohol, Quantitative 04/23/18 04/23/18 04/23/18 00:11 03:10 11:05 WBC 18.0 H RBC 3.53 L Hgb 11.6 Hct 34.4 MCV 97.5 MCH 32.8 H MCHC 33.7 RDW 13.0 Plt Count 207 MPV 7.9 Neut % (Auto) Lymph % (Auto) [place] % (Auto) Eos % (Auto) Baso % (Auto) Neut # (Auto) Lymph # (Auto) [place] # (Auto) Eos # (Auto) Baso # (Auto) Neutrophils % (Manual) Band Neutrophils % Lymphocytes % (Manual) Monocytes % (Manual) Myelocytes % Platelet Estimate pO2 VBG pH VBG pCO2 VBG HCO3 VBG Total CO2 VBG O2 Sat (Calc) VBG Base Excess VBG Potassium Glucose Lactate Crit Value Called To Crit Value Called By Crit Value Read Back Blood Gas Notified Time Sodium Potassium Chloride Carbon Dioxide Anion Gap BUN Creatinine Est GFR ( Amer) Est GFR (Non-Af Amer) POC Glucose (mg/dL) 83 115 H Random Glucose Hemoglobin A1c Calcium Phosphorus Magnesium Total Bilirubin AST ALT Alkaline Phosphatase Total Creatine Kinase CK-MB (Mass) Troponin I Total Protein Albumin Globulin Albumin/Globulin Ratio Venous Blood Potassium Urine Color Urine Clarity Urine pH Ur Specific [place] Urine Protein Urine Glucose (UA) Urine Ketones Urine Blood Urine Nitrate Urine Bilirubin Urine Urobilinogen Ur Leukocyte Esterase Urine WBC (Auto) Urine RBC (Auto) Ur Squamous Epith Cells Urine Bacteria Urine HCG, Qual Salicylates Urine Opiates Screen Urine Methadone Screen Acetaminophen Ur Barbiturates Screen Ur Phencyclidine Scrn Ur Amphetamines Screen U Benzodiazepines Scrn U Oth Cocaine Metabols U Cannabinoids Screen Alcohol, Quantitative 04/23/18 04/23/18 04/23/18 11:05 11:52 14:16 WBC RBC Hgb Hct MCV MCH MCHC RDW Plt Count MPV Neut % (Auto) Lymph % (Auto) [place] % (Auto) Eos % (Auto) Baso % (Auto) Neut # (Auto) Lymph # (Auto) [place] # (Auto) Eos # (Auto) Baso # (Auto) Neutrophils % (Manual) Band Neutrophils % Lymphocytes % (Manual) Monocytes % (Manual) Myelocytes % Platelet Estimate pO2 VBG pH VBG pCO2 VBG HCO3 VBG Total CO2 VBG O2 Sat (Calc) VBG Base Excess VBG Potassium Glucose Lactate Crit Value Called To Crit Value Called By Crit Value Read Back Blood Gas Notified Time Sodium 135 Potassium 3.5 L Chloride 103 Carbon Dioxide 25 Anion Gap 11 BUN 8 Creatinine 0.6 L Est GFR ( Amer) > 60 Est GFR (Non-Af Amer) > 60 POC Glucose (mg/dL) 85 Random Glucose 77 Hemoglobin A1c 5.5 Calcium 7.4 L Phosphorus Magnesium Total Bilirubin AST ALT Alkaline Phosphatase Total Creatine Kinase 138 H CK-MB (Mass) 5.77 H Troponin I 0.0870 Total Protein Albumin Globulin Albumin/Globulin Ratio Venous Blood Potassium Urine Color Urine Clarity Urine pH Ur Specific [place] Urine Protein Urine Glucose (UA) Urine Ketones Urine Blood Urine Nitrate Urine Bilirubin Urine Urobilinogen Ur Leukocyte Esterase Urine WBC (Auto) Urine RBC (Auto) Ur Squamous Epith Cells Urine Bacteria Urine HCG, Qual Salicylates Urine Opiates Screen Urine Methadone Screen Acetaminophen Ur Barbiturates Screen Ur Phencyclidine Scrn Ur Amphetamines Screen U Benzodiazepines Scrn U Oth Cocaine Metabols U Cannabinoids Screen Alcohol, Quantitative Assessment & Plan (1) Mental status alteration Assessment and Plan: Currently she is back to baseline. She likely abused cocaine and cannabis to result in altered mental status. She may have also had an infection. She is afebrile and does not have any neurological deficits and no headache. Unlikely meningitis or encephalitis. MRI is normal. No further recommendations from a neurological perspective. Thank you for this consultation. Status: Acute
[2018-04-23] MEDS: Saccharomyces Boulardi 250 mg Cap PO SCH (18:03)
[2018-04-24 08:08] LABS: BASO % 0.2 % (0.0-2.0); EOS # 0.2 K/uL (0.0-0.7); EOS % 1.6 % (0.0-4.0); HEMOGLOBIN 12.1 g/dL (11.0-16.0); LYMPH # 1.8 K/uL (1.0-4.3); LYMPH % 14.2 % (20.0-40.0); MEAN CORPUSCULAR HEMOGLOBIN 32.9 pg (27.0-31.0); MEAN PLATELET VOLUME 8.5 fL (7.2-11.7); MONO % 7.8 % (0.0-10.0); NEUT # 9.9 K/uL (1.8-7.0); NEUT % 76.2 % (50.0-75.0); NRBC % 0.1 % (0.0-2.0); RBC 3.66 Mil/uL (3.80-5.20); RED CELL DISTRIBUTION WIDTH 13.1 % (11.5-14.5)
[2018-04-24 08:40] LABS: ALB/GLOB RATIO 1.2 (1.0-2.1); ALBUMIN 3.6 g/dL (3.5-5.0); ALT/SGPT 29 U/L (9-52); AST/SGOT 34 U/L (14-36); BLOOD UREA NITROGEN 4 mg/dL (7-17); CALCIUM 8.1 mg/dl (8.6-10.4); GFR NON-AFRICAN AMERICAN > 60
[2018-04-24] MEDS ORDERED: Potassium & Sodium Phosphate PO ONE (10:30)
[2018-04-24] MEDS: Saccharomyces Boulardi 250 mg Cap PO SCH ×2 (10:30→18:38)
--- NOTE | 2018-04-24 10:42 | CP.PCM.PN ---
<Maritza Rodas RamónRolo - Last Filed: 04/24/18 16:55> Subjective - Date & Time of Evaluation Date of Evaluation: 04/24/18 Time of Evaluation: 10:41 - Subjective Subjective: Progress note for Dr. Walls Patient was seen and examined at bedside in no acute distress. Patient reports feeling better today. She reports having a headache after the MRI, but resolved shortly after. She is aox3 and knows the president of the . Remaining review of symptoms is negative. Objective - Vital Signs/Intake and Output Vital Signs (last 24 hours): Temp Pulse Resp BP Pulse Ox 98.5 F 75 20 137/91 H 94 L 04/24/18 08:29 04/24/18 08:29 04/24/18 08:29 04/24/18 08:29 04/24/18 08:29 - Medications Medications: Current Medications Dextrose/Sodium Chloride (Dextrose 5%/0.9% Ns 1000 Ml) 1,000 mls @ 100 mls/hr IV .Q10H [facility] Last Admin: 04/23/18 08:30 Dose: 100 mls/hr Azithromycin 500 mg/ Sodium (Chloride) 250 mls @ 250 mls/hr IVPB DAILY@1200 [facility]; Protocol Last Admin: 04/23/18 14:00 Dose: 250 mls/hr Ceftriaxone Sodium 1 gm/ (Sodium Chloride) 100 mls @ 100 mls/hr IVPB Q12H [facility]; Protocol Last Admin: 04/24/18 10:36 Dose: 100 mls/hr Ondansetron HCl (Zofran Inj) 4 mg IVP Q6 PRN PRN Reason: N/V Last Admin: 04/24/18 10:39 Dose: 4 mg Saccharomyces Boulardii (Florastor) 250 mg PO BID [facility] Last Admin: 04/24/18 10:30 Dose: 250 mg - Labs Labs: 04/24/18 08:01 04/24/18 08:01 - Constitutional Appears: No Acute Distress - Head Exam Head Exam: ATRAUMATIC, NORMAL INSPECTION - Eye Exam Eye Exam: EOMI, Normal appearance - ENT Exam ENT Exam: Mucous Membranes Moist - Respiratory Exam Respiratory Exam: Clear to Ausculation Bilateral, NORMAL BREATHING PATTERN. absent: Respiratory Distress - Cardiovascular Exam Cardiovascular Exam: REGULAR RHYTHM, +S1, +S2 - GI/Abdominal Exam GI & Abdominal Exam: Soft, Normal Bowel Sounds. absent: Tenderness - Extremities Exam Extremities Exam: Full ROM, Normal Inspection. absent: Pedal Edema, Tenderness - Neurological Exam Neurological Exam: Alert, Awake, CN II-XII Intact, Oriented x3, Reflexes Normal. absent: Motor Sensory Deficit - Psychiatric Exam Psychiatric exam: Normal Affect, Normal Mood - Skin Skin Exam: Dry, Normal Color, Warm Assessment and Plan - Assessment and Plan (Free Text) Assessment: Altered mental status - Patient is back to baseline; her symptoms were likely secondary to substance abuse. Head CT and Brain MRI were negative for acute pathology. UDS was positive for cocaine and cannabis. No further recommendations from neurological standpoi nt at this time. Case discussed with Dr. Kavita Martinez, PGY2 <Dipesh Walls - Last Filed: 04/24/18 17:18> Objective - Vital Signs/Intake and Output Vital Signs (last 24 hours): Temp Pulse Resp BP Pulse Ox 98.3 F 77 18 121/84 97 04/24/18 15:37 04/24/18 15:37 04/24/18 15:37 04/24/18 15:37 04/24/18 15:37 Intake and Output: 04/24/18 04/24/18 06:59 18:59 Intake Total 800 Balance 800 - Medications Medications: Current Medications Dextrose/Sodium Chloride (Dextrose 5%/0.9% Ns 1000 Ml) 1,000 mls @ 100 mls/hr IV .Q10H [facility] Last Admin: 04/23/18 08:30 Dose: 100 mls/hr Azithromycin 500 mg/ Sodium (Chloride) 250 mls @ 250 mls/hr IVPB DAILY@1200 [facility]; Protocol Last Admin: 04/23/18 14:00 Dose: 250 mls/hr Ceftriaxone Sodium 1 gm/ (Sodium Chloride) 100 mls @ 100 mls/hr IVPB Q12H [facility]; Protocol Last Admin: 04/24/18 10:36 Dose: 100 mls/hr Ondansetron HCl (Zofran Inj) 4 mg IVP Q6 PRN PRN Reason: N/V Last Admin: 04/24/18 15:55 Dose: 4 mg Saccharomyces Boulardii (Florastor) 250 mg PO BID [facility] Last Admin: 04/24/18 10:30 Dose: 250 mg - Labs Labs: 04/24/18 08:01 12/05/18 08:01 Assessment and Plan (1) Mental status alteration Status: Acute Attending/Attestation - Attestation I have personally seen and examined this patient.: Yes I have fully participated in the care of the patient.: Yes I have reviewed all pertinent clinical information, including history, physical exam and plan: Yes Notes (Text): 04/24/18 17:18 I agree with the assessment and plan: Likely drug induced. No further recommendations.
--- NOTE | 2018-04-24 11:45 | CARD ---
APPROVED REPORT Date of service: 04/23/2018 EKG Measurement Heart [id number] <Conclusion> Normal sinus rhythm with sinus arrhythmia T wave abnormality, consider inferior ischemia Abnormal ECG
--- NOTE | 2018-04-24 11:49 | CP.PCM.PN ---
Subjective - Date & Time of Evaluation Date of Evaluation: 04/24/18 Time of Evaluation: 07:50 - Subjective Subjective: Medicine progress note (Dr. Silva's service) Patient was seen and examined at bedside with improved symptoms. Patient is still with mild nausea but no episodes of vomiting since yesterday and patient is tolerating liquid diet and some solids. Currently, patient admits to mild chest discomfort with inspiration, nausea and vomiting but denies palpitations, dizziness,diaphoresis, diarrhea or abdominal pain. Objective - Vital Signs/Intake and Output Vital Signs (last 24 hours): Temp Pulse Resp BP Pulse Ox 98.5 F 75 20 137/91 H 94 L 04/24/18 08:29 04/24/18 08:29 04/24/18 08:29 04/24/18 08:29 04/24/18 08:29 - Medications Medications: Current Medications Dextrose/Sodium Chloride (Dextrose 5%/0.9% Ns 1000 Ml) 1,000 mls @ 100 mls/hr IV .Q10H [facility] Last Admin: 04/23/18 08:30 Dose: 100 mls/hr Azithromycin 500 mg/ Sodium (Chloride) 250 mls @ 250 mls/hr IVPB DAILY@1200 [facility]; Protocol Last Admin: 04/23/18 14:00 Dose: 250 mls/hr Ceftriaxone Sodium 1 gm/ (Sodium Chloride) 100 mls @ 100 mls/hr IVPB Q12H [facility]; Protocol Last Admin: 04/24/18 10:36 Dose: 100 mls/hr Ondansetron HCl (Zofran Inj) 4 mg IVP Q6 PRN PRN Reason: N/V Last Admin: 04/24/18 10:39 Dose: 4 mg Saccharomyces Boulardii (Florastor) 250 mg PO BID [facility] Last Admin: 04/24/18 10:30 Dose: 250 mg - Labs Labs: 04/24/18 08:01 04/24/18 08:01 - Constitutional Appears: Well, No Acute Distress - Head Exam Head Exam: ATRAUMATIC, NORMAL INSPECTION - Eye Exam Eye Exam: EOMI, Normal appearance - Respiratory Exam Respiratory Exam: Clear to Ausculation Bilateral, NORMAL BREATHING PATTERN. absent: Decreased Breath Sounds, Prolonged Expiratory Phase, Rhonchi, Wheezes, Respiratory Distress - Cardiovascular Exam Cardiovascular Exam: REGULAR RHYTHM, +S1, +S2 - GI/Abdominal Exam GI & Abdominal Exam: Soft, Normal Bowel Sounds. absent: Distended, Firm, Guarding, Rigid, Tenderness - Extremities Exam Extremities Exam: Normal Inspection. absent: Calf Tenderness, Pedal Edema - Back Exam Back Exam: NORMAL INSPECTION. absent: CVA tenderness (L), CVA tenderness (R) - Neurological Exam Neurological Exam: Alert, Awake, Oriented x3 - Psychiatric Exam Psychiatric exam: Normal Affect - Skin Skin Exam: Normal Color Assessment and Plan (1) Mental status alteration Assessment & Plan: Possible witnessed seizure episode secondary to substance abuse Consultation: Neurology, Dr. Walls--->Help appreciated * Recommendation as per recommendation * No further intervention as per neurology Imaging: Head CT: No acute intracranial abnormality. Sinus mucosal disease. Brain MRI without contrast: Unremarkable non contrast enhanced MRI of the brain.Bilateral maxillary sinus retention cyst/polyps as well as mild left mastoid air cell opacification. Management: Seizure precautions Status: Acute (2) Nausea Assessment & Plan: Zofran 4mg IV Q6H PRN Status: Acute (3) Sepsis Assessment & Plan: On admission: - WBC: 32.4, HR:100, Bands 11 Chest X-ray: Low-density vague asymmetrical mild increased density projects over the left inferior hemithorax near costophrenic angle. A developing infiltrate and/or other pleural parenchymal pathology including small left pleural effusion are considerations. No dense air bronchograms noted. F/u repeat Chest X-ray. UA: LE (3+), WBC (29); Blood Culture negative. Awaiting UC Procalcitonin: 1.63 WBC down trending Empiric Abx: - Rocephin 1gm daily - Azithromycin 500mg IV daily -Florastor 250mg PO BID -D5WNS @100cc/hr due to hypoglycemia Status: Acute (4) Substance abuse Assessment & Plan: UDS: +Cocaine Consultation: - Psychiatry, Dr. Paige---> Help appreciated * Management as per recommendation Status: Acute (5) Chest discomfort Assessment & Plan: Possibly secondary to cocaine use MARILEE: Negative F/u EKG Status: Acute (6) Hypokalemia Assessment & Plan: Resolved Secondary to vomiting KCL soln PO once Status: Resolved (7) Hypoglycemia Assessment & Plan: Finger stick blood glucose ACBD Currently on D5WNS@100cc/hr Status: Acute (8) Prophylactic measure Assessment & Plan: GI: Not indicated DVT: SCDs Disposition: If repeat Chest-Xray is stable, WBC normalizes and patient is clinically improved, plans for discharge with OP Abx for pneumonia All plans and management discussed with Dr. Silva Status: Acute
--- NOTE | 2018-04-24 16:28 | RAD ---
HISTORY: Shortness of breath COMPARISON: Chest x-ray performed 04/22/18 TECHNIQUE: Chest PA and lateral FINDINGS: LUNGS: Bilateral hilar prominence. No focal consolidation. Please note that chest x-ray has limited sensitivity for the detection of pulmonary masses. PLEURA: No significant pleural effusion identified. No definite pneumothorax . CARDIOVASCULAR: Heart size appears within normal limits. No atherosclerotic calcification present. OSSEOUS STRUCTURES: No acute osseous abnormality identified. VISUALIZED UPPER ABDOMEN: Unremarkable. OTHER FINDINGS: None. IMPRESSION: Bilateral hilar prominence.
[2018-04-25 00:28] VITALS: RESP 20
[2018-04-25 08:06] VITALS: BP 133/78; PULSE 70; TEMP 98.8; O2SAT 99
[2018-04-25 08:49] LABS: BASO % 0.5 % (0.0-2.0); EOS # 0.3 K/uL (0.0-0.7); EOS % 2.8 % (0.0-4.0); HEMOGLOBIN 12.2 g/dL (11.0-16.0); LYMPH % 22.5 % (20.0-40.0); MEAN CELL VOLUME 98.2 fL (81.0-99.0); MEAN CORPUSCULAR HEMOGLOBIN 33.5 pg (27.0-31.0); MEAN CORPUSCULAR HGB CONC 34.1 g/dL (33.0-37.0); MEAN PLATELET VOLUME 8.2 fL (7.2-11.7); NEUT # 5.7 K/uL (1.8-7.0); NEUT % 63.2 % (50.0-75.0); RBC 3.66 Mil/uL (3.80-5.20); RED CELL DISTRIBUTION WIDTH 12.9 % (11.5-14.5)
[2018-04-25 09:27] LABS: ALB/GLOB RATIO 1.1 (1.0-2.1); ALBUMIN 3.4 g/dL (3.5-5.0); ALT/SGPT 28 U/L (9-52); AST/SGOT 26 U/L (14-36); BLOOD UREA NITROGEN 4 mg/dL (7-17); CALCIUM 7.9 mg/dl (8.6-10.4); GFR NON-AFRICAN AMERICAN > 60
[2018-04-25] MEDS: Saccharomyces Boulardi 250 mg Cap PO SCH (10:02)
--- NOTE | 2018-04-25 11:58 | CP.PCM.PN ---
Subjective - Date & Time of Evaluation Date of Evaluation: 04/25/18 Time of Evaluation: 07:10 - Subjective Subjective: Resident progress note for Dr. Silva Patient seem and examined at bedside. No acute events reported overnight. Patient reports to feeling well. She denies having fever, chills, shortness of breath, chest pain, abdominal pain, nausea, vomiting, diarrhea, or urinary symptoms. Objective - Vital Signs/Intake and Output Vital Signs (last 24 hours): Temp Pulse Resp BP Pulse Ox 98.8 F 70 20 133/78 99 04/25/18 08:04 04/25/18 08:04 04/25/18 08:04 04/25/18 08:04 04/25/18 08:04 Intake and Output: 04/25/18 04/25/18 06:59 18:59 Intake Total 1040 Output Total 2 Balance 1038 - Medications Medications: Current Medications Dextrose/Sodium Chloride (Dextrose 5%/0.9% Ns 1000 Ml) 1,000 mls @ 100 mls/hr IV .Q10H [facility] Last Admin: 04/23/18 08:30 Dose: 100 mls/hr Azithromycin 500 mg/ Sodium (Chloride) 250 mls @ 250 mls/hr IVPB DAILY@1200 [facility]; Protocol Last Admin: 04/23/18 14:00 Dose: 250 mls/hr Ceftriaxone Sodium 1 gm/ (Sodium Chloride) 100 mls @ 100 mls/hr IVPB Q12H [facility]; Protocol Last Admin: 04/25/18 10:52 Dose: 100 mls/hr Ondansetron HCl (Zofran Inj) 4 mg IVP Q6 PRN PRN Reason: N/V Last Admin: 04/24/18 15:55 Dose: 4 mg Saccharomyces Boulardii (Florastor) 250 mg PO BID [facility] Last Admin: 04/25/18 10:02 Dose: 250 mg - Labs Labs: 04/25/18 08:44 04/25/18 08:44 - Additional Findings Additional findings: - Constitutional Appears: Well, No Acute Distress - Head Exam Head Exam: ATRAUMATIC, NORMAL INSPECTION - Eye Exam Eye Exam: EOMI, Normal appearance - Respiratory Exam Respiratory Exam: Clear to Ausculation Bilateral, NORMAL BREATHING PATTERN. absent: Decreased Breath Sounds, Prolonged Expiratory Phase, Rhonchi, Wheezes, Respiratory Distress - Cardiovascular Exam Cardiovascular Exam: REGULAR RHYTHM, +S1, +S2 - GI/Abdominal Exam GI & Abdominal Exam: Soft, Normal Bowel Sounds. absent: Distended, Firm, Guarding, Rigid, Tenderness - Extremities Exam Extremities Exam: Normal Inspection. absent: Calf Tenderness, Pedal Edema - Back Exam Back Exam: NORMAL INSPECTION. absent: CVA tenderness (L), CVA tenderness (R) - Neurological Exam Neurological Exam: Alert, Awake, Oriented x3 - Psychiatric Exam Psychiatric exam: Normal Affect - Skin Skin Exam: Normal Color Assessment and Plan - Assessment and Plan (Free Text) Assessment: (1) Mental status alteration Assessment & Plan: Possible witnessed seizure episode secondary to substance abuse Consultation: Neurology, Dr. Wlals--->Help appreciated * Recommendation as per recommendation * No further intervention as per neurology Imaging: Head CT: No acute intracranial abnormality. Sinus mucosal disease. Brain MRI without contrast: Unremarkable non contrast enhanced MRI of the brain.Bilateral maxillary sinus retention cyst/polyps as well as mild left mastoid air cell opacification. Management: Seizure precautions Status: Acute (2) Nausea Assessment & Plan: Zofran 4mg IV Q6H PRN Status: Acute (3) Sepsis Assessment & Plan: On admission: - WBC: 32.4, HR:100, Bands 11 - WBC: 9, HR: 97 today Chest X-ray: Low-density vague asymmetrical mild increased density projects over the left inferior hemithorax near costophrenic angle. A developing infiltrate and/or other pleural parenchymal pathology including small left pleural effusion are considerations. No dense air bronchograms noted. Repeat Chest X-ray stable UA: LE (3+), WBC (29); Blood Culture negative. Awaiting Procalcitonin: 1.63 WBC down trending Empiric Abx: - Rocephin 1gm daily - Azithromycin 500mg IV daily -Florastor 250mg PO BID -D5WNS @100cc/hr due to hypoglycemia Status: Acute (4) Substance abuse Assessment & Plan: UDS: +Cocaine Consultation: - Psychiatry, Dr. Paige---> Help appreciated * Management as per recommendation Status: Acute (5) Chest discomfort Assessment & Plan: Possibly secondary to cocaine use MARILEE: Negative F/u EKG Status: Acute (6) Hypokalemia Assessment & Plan: Resolved Secondary to vomiting KCL soln PO once Status: Resolved (7) Hypoglycemia Assessment & Plan: Finger stick blood glucose ACBD Currently on D5WNS@100cc/hr Status: Acute (8) Prophylactic measure Assessment & Plan: GI: Not indicated DVT: SCDs Disposition: Repeat CXR is stable. Patient will be discharged on antibiotic for 7 days All plans and management discussed with Dr. Silva Status: Acute
[2018-04-25] MEDS: Azithromycin 500 MG in Sodium Chloride 0.9% 250 ML IVPB SCH (12:43)
== END 2018-04-25 14:46 | disposition home or self-care (01) ==
LOC: C.ER 17:45 → C.9E 22:32 → C.6T 04-23 00:52
PROVIDERS: ADMIT Internal Medicine Pulmonary Disease; ATTEND Internal Medicine Pulmonary Disease
DX: A41.9 Sepsis, unspecified organism (principal); R56.9 Unspecified convulsions; F14.10 Cocaine abuse, uncomplicated; F12.10 Cannabis abuse, uncomplicated; E87.6 Hypokalemia; E11.65 Type 2 diabetes mellitus with hyperglycemia; E11.649 Type 2 diabetes mellitus with hypoglycemia without coma; F17.210 Nicotine dependence, cigarettes, uncomplicated; J34.1 Cyst and mucocele of nose and nasal sinus
CPT/HCPCS: 36415; 70450; 70551; 71045; 71046; 80048; 80053; 80320; 80324; 80329; 80345; 80346; 80349; 80353; 80358; 80361; 81001; 82550; 82803; 82947; 82948; 83036; 83735; 83992; 84100; 84145; 84484; 84703; 85025; 85027; 87040; 87086; 93005; 96361; 96365; 96366; 96367; 96375; 96376; 99285; G0378; J0456; J0696; J2405; J7030; J7042; J7050